=== PATIENT | male | born 1945 | race Caucasian/White ===

== ENCOUNTER 2025-01-20 03:10 | Emergency (ER) | payer MEDICARE, OTHER, SELFPAY ==
[2025-01-20] VITALS (7 sets, daily range): BP systolic 156–185; BP diastolic 75–97; BMI 33.8
[2025-01-20] MEDS: VALIUM 5 MG PO (04:00)
[2025-01-20] MEDS: MORPHINE SULFATE 4 MG IV (04:42)
[2025-01-20] MEDS: ZOFRAN 4 MG IV (04:43)
[2025-01-20 04:51] LABS: Hematocrit 40.2 % (39.0-52.0); Hemoglobin 14.2 g/dL (13.0-18.0); Mean Corp Hgb Conc. 35.3 g/dL (33.0-37.0); Mean Corpuscular Volume 95.5 fL (80.0-94.0); Nucleated Red Blood Cells % 0 % (-); Platelet Count 148 10^3/uL (130-400); Red Cell Dist. Width 13.1 % (11.5-14.5)
[2025-01-20 05:20] LABS: ALT (SGPT) 83 U/L (0-50); AST (SGOT) 166 U/L (17-59); Albumin 4.4 g/dl (3.5-5.0); Alkaline Phosphatase 209 U/L (38-126); Blood Urea Nitrogen 12 mg/dl (9-20); Calcium 9.5 mg/dl (8.4-10.2); Carbon Dioxide 24 mmol/L (22-30); Chloride 106 mmol/L (98-107); Estimated Creatinine Clearance 110 ml/min; Glucose 138 mg/dl (70-99); Potassium 4.6 mmol/L (3.5-5.1); Sodium 138 mmol/L (135-145); Total Protein 8.0 g/dl (6.3-8.2); eGFR > 60.00
--- NOTE | 2025-01-20 06:12 | ED.MUSCINJ ---
HPI-Injury
<Davonte Lam, DO - Last Filed: 01/20/25 06:55>
General
Chief Complaint: Musculo-Skeletal Complaint
Source: patient
Exam Limitations: none
Time Seen by Provider: 01/20/25 03:39
Nursing documentation reviewed up to this point in time: agreed with
History of Present Illness-Injury
Initial Injury comments:
Note:
CHIEF COMPLAINT(S)
Neck pain
HISTORY OF PRESENT ILLNESS
The patient is a 79-year-old male who presents with a complaint of neck pain that began this afternoon. The patient describes the pain as a stiff neck. He initially managed the pain by taking aspirin and noted some relief. There is no associated
headache or blurry vision. The patient reported that upon palpation, there is tenderness, particularly on the left side of the neck. The patient had been administered diazepam earlier, which provided some relief but only for 18 minutes. He arrived
via ambulance without significant improvement during transport. The patient expressed that the transport was uncomfortable. The plan involves administering acetaminophen with oxycodone for pain management, and a computed tomography (CT) scan will be
conducted if the new medication regimen does not alleviate the symptoms.
PHYSICAL EXAM
General: Alert, moderate acute distress.
Neck: Tender to palpation on the right side of the neck. No midline neck tenderness. Full range of motion of the neck with some pain when looking to the right.
ENT: Oropharynx is clear, patent airway visualized
Neurological: Alert and oriented to person, place, time, and situation.
Respiratory: Lungs clear to auscultation bilaterally without wheezes rales or rhonchi.
Musculoskeletal: Full range of motion in the extremities. No edema in the upper extremities
Skin: Warm and dry. No rash about the neck
Psychological: Normal affect. Cooperative.
PLAN
Administer acetaminophen with oxycodone (Percocet) for pain relief.
Consider a computed tomography (CT) scan if pain persists despite medication.
DIFFERENTIAL DIAGNOSIS
The Differential Diagnosis includes, in no particular order and is not limited to:
1. Cervical muscle strain
2. Cervical spondylosis
3. Cervical radiculopathy
4. Osteoarthritis of the cervical spine
5. Cervical spine fracture
6. Spinal stenosis
7. Myofascial pain syndrome
8. Infection (e.g., meningitis)
9. Tumor or mass in the cervical region
10. Systemic inflammatory response syndrome (SIRS)
Phy Exam
<Reyes Tobar, DO - Last Filed: 01/20/25 08:39>
Physical Exam
Physical Exam:
.
Injury Course
<Davonte Lam, DO - Last Filed: 01/20/25 06:55>
Orders/Labs/Results
Orders:
Orders
01/20/25 03:43
Diazepam [Valium] 5 mg PO NOW STA
01/20/25 04:33
Complete Blood Count/With Diff Urgent
Comprehensive Metabolic Panel Urgent
01/20/25 04:38
CT Head & Neck Angio W/wo IV Urgent
Comment:
Reason For Exam: right neck pain
Morphine Sulfate 4 mg IV NOW STA
Ondansetron Injectable [Zofran] 4 mg IV NOW STA
01/20/25 06:12
Ketorolac [Toradol] 15 mg IV NOW STA
01/20/25 08:34
Dexamethasone Sod Phosphate [Decadron] 10 mg IV NOW STA
Oxycodone/Acetaminophen [Percocet 5/325] 1 tablet PO NOW STA
Abnormal Lab Results
01/20/25
04:33
RBC 4.21 L 10^6/uL
(4.70-6.10)
MCV 95.5 H fL
(80.0-94.0)
MCH 33.7 H pg
(27.0-31.0)
MPV 11.0 H fL
(7.4-10.4)
Absolute Lymphs (auto) 1.0 L 10^3/uL
(1.2-3.4)
Absolute Monos (auto) 0.9 H 10^3/uL
(0.1-0.6)
Lymphocytes % 13.4 L %
(20.5-51.1)
Monocytes % 11.7 H %
(1.7-9.3)
Glucose 138 H mg/dl
(70-99)
AST 166 H U/L
(17-59)
ALT 83 H U/L
(0-50)
Alkaline Phosphatase 209 H U/L
(38-126)
01/20/25 04:33
01/20/25 04:33
<Reyes Tobar, DO - Last Filed: 01/20/25 08:39>
Orders/Labs/Results
Orders:
Orders
01/20/25 03:43
Diazepam [Valium] 5 mg PO NOW STA
01/20/25 04:33
Complete Blood Count/With Diff Urgent
Comprehensive Metabolic Panel Urgent
01/20/25 04:38
CT Head & Neck Angio W/wo IV Urgent
Comment:
Reason For Exam: right neck pain
Morphine Sulfate 4 mg IV NOW STA
Ondansetron Injectable [Zofran] 4 mg IV NOW STA
01/20/25 06:12
Ketorolac [Toradol] 15 mg IV NOW STA
01/20/25 08:34
Dexamethasone Sod Phosphate [Decadron] 10 mg IV NOW STA
Oxycodone/Acetaminophen [Percocet 5/325] 1 tablet PO NOW STA
Abnormal Lab Results
01/20/25
04:33
RBC 4.21 L 10^6/uL
(4.70-6.10)
MCV 95.5 H fL
(80.0-94.0)
MCH 33.7 H pg
(27.0-31.0)
MPV 11.0 H fL
(7.4-10.4)
Absolute Lymphs (auto) 1.0 L 10^3/uL
(1.2-3.4)
Absolute Monos (auto) 0.9 H 10^3/uL
(0.1-0.6)
Lymphocytes % 13.4 L %
(20.5-51.1)
Monocytes % 11.7 H %
(1.7-9.3)
Glucose 138 H mg/dl
(70-99)
AST 166 H U/L
(17-59)
ALT 83 H U/L
(0-50)
Alkaline Phosphatase 209 H U/L
(38-126)
01/20/25 04:33
01/20/25 04:33
<Davonte Lam DO - Last Filed: 01/20/25 06:55>
*Pulse Oximetry
SaO2: 99
Oxygen Mode of Delivery: Room air
Patient hypoxic: no
*Critical Care Note
Total Time (30-74mins, 75-104mins- exclusive of procedures): Not Applicable
<Davonte Lam DO - Last Filed: 01/20/25 06:55>
Update Note
Update Note:
NAME: RENEE MADISON
DATE OF EXAM: 01/20/2025
Patient No: [id number]
Physician: BEAU
Date of : 1945
Past Medical History (entered by Technologist):
Reason For Exam (entered by Technologist):
Other Notes (entered by Technologist): rt sided neck pain/stiff neck
no priors
Additional Information (per [facility]iologist):
CT head without IV contrast
CTA head and neck with IV contrast
IMPRESSION:
CT HEAD: No hemorrhage, hydrocephalus, or herniation. Sequelae of chronic microvascular disease. Consider MRI if clinically indicated. Maxillary sinus disease/sinusitis.
CTA HEAD AND NECK: No large vessel occlusion or high-grade stenosis.
Case finalized on 01/20/25 05:55 EDT
Nato Ponce M.D.
This report has been electronically signed and verified by the Radiologist whose name is printed above.
<Reyes Tobar, DO - Last Filed: 01/20/25 08:39>
Update Note
Update Note:
NAME: RENEE MADISON
DATE OF EXAM: 01/20/2025
Patient No: [id number]
Physician: BEAU
Date of : 1945
Past Medical History (entered by Technologist):
Reason For Exam (entered by Technologist):
Other Notes (entered by Technologist): rt sided neck pain/stiff neck
no priors
Additional Information (per [facility]):
CT head without IV contrast
CTA head and neck with IV contrast
IMPRESSION:
CT HEAD: No hemorrhage, hydrocephalus, or herniation. Sequelae of chronic microvascular disease. Consider MRI if clinically indicated. Maxillary sinus disease/sinusitis.
CTA HEAD AND NECK: No large vessel occlusion or high-grade stenosis.
Case finalized on 01/20/25 05:55 EDT
Nato Ponce M.D.
This report has been electronically signed and verified by the Radiologist whose name is printed above.
8:30 AM
6 AM ER attending signout pending reevaluation on exam he is comfortable, has clearly reproducible pain over his right trapezius has strong radial pulse on the right, will add a dose of steroids, sent a prescription to his pharmacy for analgesics
ED Attending Note
<Davonte Lam, DO - Last Filed: 01/20/25 06:55>
-
Portions of this chart may have been created with voice recognition software.� Occasional wrong word or��sound alike� substitutions may have occurred due to the inherent limitations of voice recognition software.
Discharge Plan
Departure
Patient Disposition: Home (Routine Discharge)
Date of Disposition: 01/20/25
Time of Disposition: 08:35
Patient with high blood pressure during this ER visit?: No
Condition: Good
Discharge Problem:
Musculoskeletal neck pain
Instructions: Muscle and Bone Pain (DC), Ibuprofen
Prescriptions:
New
metaxalone 800 mg tablet
800 mg PO TID PRN (Reason: muscle pain) Qty: 14 0RF
oxycodone-acetaminophen [Percocet] 5-325 mg tablet
1 tab PO Q6HPRN PRN (Reason: pain) Qty: 10 0RF
methylprednisolone [Medrol (Ramesh)] 4 mg tablets,dose pack
See Rx Instructions .ROUTE .COMPLEX Qty: 21 0RF
Rx Instructions:
for 6 days
Referrals:
Dianne Harding MD [Family Provider, Family Practice]
Interventions
Interventions:
*Risk Screen - Suicide Last Done: 01/20/25 03:19
*General Assessment Last Done: 01/20/25 03:19
*Neglect/Abuse Screening Last Done: 01/20/25 03:19
*ED- Fall Risk Assessment Last Done: 01/20/25 03:19
*ED COVID-19 Vaccine History Last Done: 01/20/25 03:19
*ED Influenza Vaccine History Last Done: 01/20/25 03:19
ED-Musculoskeletal Assessment Last Done: 01/20/25 03:26
Discharge Date and Time
Print Language: TUVALUAN
[2025-01-20] MEDS: TORADOL 15 MG IV (06:39)
[2025-01-20] MEDS: DECADRON 10 MG IV (08:51)
[2025-01-20] MEDS: PERCOCET 5/325 1 TABLET PO (08:51)
== END 2025-01-20 09:28 | disposition home or self-care (01) ==
LOC: EMR 03:10
PROVIDERS: Student in an Organized Health Care Education/Training Program; EMERGENCY PHYSICIAN Emergency Medicine; FAMILY PHYSICIAN Family Medicine
DX: M54.2 Cervicalgia (principal); M43.6 Torticollis
CPT/HCPCS: 96374; 96375; 99284; 70496; 70498; 80053; 85025; Q9967